=== PATIENT | female | born 1940 | race Caucasian/White ===

== ENCOUNTER → 2017-01-03 | Outpatient (CLI) | payer MEDICARE, OTHER | LOC: PLAB 09:17 | PROVIDERS: ATTEND Family Medicine | DX: E55.9 Vitamin D deficiency, unspecified (principal); E03.9 Hypothyroidism, unspecified | CPT/HCPCS: 36415; 82306; 84443 ==

== ENCOUNTER → 2017-02-14 | Outpatient (CLI) | payer MEDICARE, OTHER ==
--- NOTE | 2017-02-16 15:26 | HM ---
Date Performed: 02/14/2017 Time Performed: 12:30:00 HOOKUP DATE: 02/14/17 12:30:00 PM Tue ANALYSIS START TIME: 02/14/2017 12:35:00 PM ANALYSIS END TIME: 02/15/2017 11:53:27 AM PATIENT AGE: 76 PATIENT HEIGHT PATIENT WEIGHT DRUG LIST PATIENT DIAGNOSIS: PALPITATIONS TEST NARRATIVE: The patient's average heart rate was 72 BPM. Heart rates greater than 120 B PM were noted 2% of the time. No episodes of bradycardia were noted. No pauses exceeding 2.0 sec onds were noted. 4 ventricular ectopics, which represented < 1% of the total beat count, were not ed. The highest ventricular ectopic frequency occurred from 09:00 PM to 10:00 PM Tue. During this t lei 1 VE(s) occurred. Ventricular ectopics were observed as 4 isolated beat(s) only. No couplets or runs were noted. 3040 supraventricular ectopics, which represented 3% of the total beat count, w ere noted. The highest supraventricular ectopic frequency occurred from 08:00 PM to 09:00 PM Tue. D uring this time 503 SVE(s) occurred. Multiple episodes of ST depression (defined as -1.0 mm or mo re) were noted in channel 1. The maximum depression of -2.7 mm occurred at 02:49:34 AM Wed. Multip le episodes of ST depression (defined as -1.0 mm or more) were noted in channel 2. The maximum depr ession of -2.1 mm occurred at 02:07:51 AM Wed. Multiple episodes of ST depression (defined as -1.0 m m or more) were noted in channel 3. The maximum depression of -3.0 mm occurred at 04:08:16 AM Wed. TEST INTERPRETATION: 1. Predominant underlying rhythm is sinus 2. Occasional PACs and PVCs 3. No pauses greater than 2 sec noted 4. NO episodes of ventricular or supraventricular tachyarrythmia s noted 5. No cardiac symptoms noted during recorded time interval Signed by : Leonidas Linares
== END ==
LOC: HCAV 12:13
PROVIDERS: ATTEND Family Medicine
DX: R00.2 Palpitations (principal); E05.80 Other thyrotoxicosis without thyrotoxic crisis or storm
CPT/HCPCS: 93225; 93226

== ENCOUNTER → 2017-03-14 | Outpatient (CLI) | payer MEDICARE, OTHER ==
[2017-03-14 17:59] LABS: FREE T4 1.14 NG/DL (0.76-1.46)
== END ==
LOC: PLAB 10:41
PROVIDERS: ATTEND Family Medicine
DX: E03.9 Hypothyroidism, unspecified (principal); Z79.899 Other long term (current) drug therapy
CPT/HCPCS: 36415; 84439; 84443; 84480

== ENCOUNTER → 2017-09-06 | Outpatient (CLI) | payer MEDICARE, OTHER ==
[2017-09-06 14:07] LABS: ALBUMIN 4.2 GM/DL (3.4-5.0); AST (GOT) 26 U/L (15-37); BICARBONATE 25.8 MEQ/L (21.0-32.0); BLOOD UREA NITROGEN 15 MG/DL (7-18); CALCIUM 10.2 MG/DL (8.5-10.1); CHLORIDE 102 MEQ/L (98-107); CREATININE 0.84 MG/DL (0.50-1.00); GLOMERULAR FILTRATION RATE 66 ML/MIN (>89); GLUCOSE,FASTING 87 MG/DL (74-99); SODIUM (NA) 135 MEQ/L (136-145)
[2017-09-06 14:08] LABS: ALT (GPT) 42 U/L (10-53); CHOLESTEROL 235 MG/DL (120-200)
[2017-09-06 14:18] LABS: ALKALINE PHOSPHATASE 73 U/L (45-117); CHOLESTEROL/ HDL RATIO 2.86 RATIO; HDL CHOLESTEROL 81.9 MG/DL (40.0-60.0); LDL CHOLESTEROL 122 MG/DL (0-99); THYROXINE (T4) 10.6 MCG/DL (4.8-13.9); TOTAL BILIRUBIN ADULT 0.5 MG/DL (0.2-1.0); TOTAL PROTEIN 7.8 GM/DL (6.4-8.2); TRIGLYCERIDES 156 MG/DL (42-150)
== END ==
LOC: PLAB 08:08
PROVIDERS: ATTEND Family Medicine
DX: J45.901 Unspecified asthma with (acute) exacerbation (principal); N90.4 Leukoplakia of vulva; E78.5 Hyperlipidemia, unspecified; E03.9 Hypothyroidism, unspecified
CPT/HCPCS: 36415; 80053; 80061; 84436; 84443; 84480